=== PATIENT | female | born 1970 | race Hispanic/Latino ===

== ENCOUNTER 2017-07-21 23:10 | Emergency (ER) | payer BC ==
--- NOTE | 2017-07-21 23:59 | CT ---
CT BRAIN 07/21/17 PROVIDED CLINICAL HISTORY: Trauma. FINDINGS: Comparison is made with the study dated 04/18/16. Ventricular system appears normal in size and morphology. There is no evidence for intracranial hemor rhage or mass effect. The extracranial soft tissues and osseous structures demonstrate no acute abnor mality. IMPRESSION: No evidence for intracranial hemorrhage or mass effect. POS: [facility]
== END 2017-07-22 00:10 | disposition home or self-care (01) ==
LOC: ERS 23:10
DX: S06.0X0A Concussion without loss of consciousness, initial encounter (principal); F10.129 Alcohol abuse with intoxication, unspecified; F17.210 Nicotine dependence, cigarettes, uncomplicated; F41.9 Anxiety disorder, unspecified; Z79.899 Other long term (current) drug therapy; W19.XXXA Unspecified fall, initial encounter
CPT/HCPCS: 70450

== ENCOUNTER 2017-10-15 09:13 | Emergency (ER) | payer BC, SELFPAY | END 2017-10-15 10:16 | disposition home or self-care (01) | LOC: ERS 09:13 | DX: F41.9 Anxiety disorder, unspecified (principal); F17.210 Nicotine dependence, cigarettes, uncomplicated | CPT/HCPCS: 99283 ==

== ENCOUNTER 2018-02-19 04:18 | Emergency (ER) | payer SELFPAY ==
--- NOTE | 2018-02-19 07:40 | CT ---
CT BRAIN WITHOUT CONTRAST: Date: 02/19/18 HISTORY: Trauma. COMPARISON: CT brain dated 07/21/17. FINDINGS: No acute territorial infarct or hemorrhage. No midline shift or mass effect. Ventricular size and ext ra-axial CSF spaces are normal. Calvarium is intact. Paranasal sinuses and mastoids are clear. IMPRESSION: No acute intracranial abnormality. POS: [facility]
== END 2018-02-19 10:08 | disposition home or self-care (01) ==
LOC: ERS 04:18
DX: S09.90XA Unspecified injury of head, initial encounter (principal); S00.03XA Contusion of scalp, initial encounter; F10.129 Alcohol abuse with intoxication, unspecified; F17.210 Nicotine dependence, cigarettes, uncomplicated; Z79.899 Other long term (current) drug therapy; W19.XXXA Unspecified fall, initial encounter
CPT/HCPCS: 70450

== ENCOUNTER 2018-06-11 08:28 | Outpatient (CLI) | payer BC ==
--- NOTE | 2018-06-11 10:56 | ULT ---
ULTRASOUND PELVIC TRANSVAGINAL WITH DOPPLER: HISTORY: Lower abdominal pain. COMPARISON: None. TECHNIQUE: Real-time, oquendo scale, color Doppler, and spectral analysis of the pelvis was performed. Transabdomi nal and transvaginal approach. FINDINGS: The uterus has been removed. The left ovary is not seen. The right ovary measures 3.7 x 2.8 x 2.7 c m with adequate vascular flow. There is a 2.5 cm right ovarian cyst. IMPRESSION: Right ovary cyst; otherwise, unremarkable exam. POS: [facility]
== END 2018-06-11 08:29 | disposition home or self-care (01) ==
LOC: BICULT 08:28
PROVIDERS: ATTEND Internal Medicine Gastroenterology
DX: R10.30 Lower abdominal pain, unspecified (principal); K76.0 Fatty (change of) liver, not elsewhere classified; R93.5 Abnormal findings on diagnostic imaging of other abdominal regions, including retroperitoneum; R18.8 Other ascites; K21.9 Gastro-esophageal reflux disease without esophagitis; N83.201 Unspecified ovarian cyst, right side
CPT/HCPCS: 76856

== ENCOUNTER 2018-10-03 16:30 | Emergency (ER) | payer BC ==
--- NOTE | 2018-10-03 18:22 | RAD ---
RIGHT KNEE FOUR VIEWS: HISTORY: Patient with chronic right knee pain. FINDINGS: AP, lateral, and both oblique views of the right knee demonstrate no evidence of acute fractures, sub luxations, or bony lesions. Osteoarthritic change is seen. Soft tissue pathology, including menisca l pathology or soft tissue abnormalities, cannot be excluded. Correlate with physical exam. IMPRESSION: No evidence of acute right knee abnormality seen. POS: [facility]
== END 2018-10-03 19:06 | disposition home or self-care (01) ==
LOC: ERS 16:30
DX: M25.561 Pain in right knee (principal); M81.0 Age-related osteoporosis without current pathological fracture; F41.9 Anxiety disorder, unspecified; F32.9 Major depressive disorder, single episode, unspecified; F17.210 Nicotine dependence, cigarettes, uncomplicated

== ENCOUNTER 2018-12-01 04:32 | Emergency (ER) | payer BC | END 2018-12-01 04:54 | disposition home or self-care (01) | LOC: ERS 04:32 | DX: M25.561 Pain in right knee (principal); F17.210 Nicotine dependence, cigarettes, uncomplicated; F41.9 Anxiety disorder, unspecified; I10 Essential (primary) hypertension; M81.0 Age-related osteoporosis without current pathological fracture | CPT/HCPCS: 99281 ==

== ENCOUNTER 2019-02-18 12:57 | Emergency (ER) | payer BC ==
[2019-02-18 13:47] LABS: #Basophils 0.1 thou/uL (0.0-0.2); #Eosinphils 0.1 thou/uL (0.0-0.7); #Lymphocytes 1.9 thou/uL (1.20-3.40); #Monocytes 0.4 thou/uL (0.11-0.59); #Neutrophils 5.7 thou/uL (1.40-6.50); %Basophils 0.8 % (0.0-1.0); %Eosinophils 1.6 % (0.0-10.0); %Lymphocytes 22.9 % (21.0-51.0); %Monocytes 4.5 % (0.0-10.0); %Neutrophils 70.2 % (42.0-75.0); Hemoglobin 14.8 g/dL (12.0-16.0); Mean Corpuscular HGB CONC 33.2 g/dL (32.0-36.0); Mean Corpuscular Hemoglobin 32.9 pg (27.0-31.0); Mean Platelet Volume 6.2 fL (7.4-10.4); Platelet Count 353 thou/uL (130-400); RBC Distribution Width 12.1 % (11.5-14.5); Red Blood Cell (RBC) Count 4.49 mill/uL (4.20-5.40); White Blood Cell (WBC) Count 8.2 thou/uL (4.8-10.8)
--- NOTE | 2019-02-18 14:06 | RAD ---
PORTABLE CHEST 1 VIEW: DATE: 02/18/2019. TIME: 1:42 p.m. HISTORY: Chest pain. FINDINGS: Comparison is made to the exam of 01/29/2016. The heart size is normal. The lungs are expanded without lobar consolidation, pneumothoraces, or ple ural effusions. IMPRESSION: No evidence of acute cardiopulmonary process. POS: [facility]
[2019-02-18 14:13] LABS: ALT (SGPT) 20 U/L (8-55); AST (SGOT) 18 U/L (5-34); Albumin 4.1 g/dL (3.5-5.0); Alkaline Phosphatase 65 U/L (40-150); Anion Gap 11 mmol/L (10-20); BUN (Urea Nitrogen) 8 mg/dL (7.0-18.7); Bilirubin, Total 0.4 mg/dL (0.2-1.2); Calc. Creatinine Clearance 0 mL/min (70-130); Calcium 9.3 mg/dL (7.8-10.44); Carbon Dioxide 26 mmol/L (22-29); Chloride 102 mmol/L (98-107); Estimated GFR-MDRD Greater than 90; Globulin 2.6 g/dL (2.4-3.5); Glucose 96 mg/dL (70-105); Potassium 4.3 mmol/L (3.5-5.1); Protein, Total 6.7 g/dL (6.0-8.3); Sodium 135 mmol/L (136-145)
[2019-02-18 14:30] LABS: Bilirubin Negative (Negative); Blood, Urine Negative (Negative); Clarity Clear (Clear); Glucose, Urine (Dipstick) Normal (Negative); Leukocyte Negative Leu/uL (Negative); Nitrite Negative (Negative); Protein, Urine (Dipstick) Negative (Neg-Trace); Urobilinogen Normal mg/dL (Less than 2)
[2019-02-18 15:58] LABS: BHCG - Serum Negative (NEGATIVE); Pregs Control Background? CLEAR/WHITE (CLR/WHITE); Pregs Control Bar Appear? YES (CONTROL BAR)
[2019-02-18] MEDS ORDERED: Azithromycin 500 MG VIAL ONE (18:06)
[2019-02-18] MEDS ORDERED: cefTRIAXone\\ROCEPHIN 250 MG VIAL ONE (18:06)
[2019-02-18] MEDS ORDERED: Azithromycin 250 MG TAB ONE (18:07)
[2019-02-18] MEDS ORDERED: Lidocaine 1% PF 5 ML VIAL ONE (18:14)
--- NOTE | 2019-02-19 16:54 | EKG ---
Test Reason : BACK/NECK PAIN Blood Pressure : / mmHG Vent. Rate : 082 BPM Atrial Rate : 082 BPM P-R Int : 154 ms QRS Dur : 098 ms QT Int : 394 ms P-R-T Axes : 011 171 028 degrees QTc Int : 460 ms Normal sinus rhythm Left posterior fascicular block Abnormal ECG Confirmed by LAN ERAZO D.O. ([id number]), production editor MAHOGANY BRAUN ([id number] on 02/19/2019 4:53:33 PM Referred By: Confirmed By:LAN ERAZO D.O.
== END 2019-02-18 18:22 | disposition home or self-care (01) ==
LOC: ERS 12:57
DX: N76.0 Acute vaginitis (principal); F41.9 Anxiety disorder, unspecified; F17.210 Nicotine dependence, cigarettes, uncomplicated
CPT/HCPCS: 36415; 71045; 80053; 81003; 84484; 84703; 85025; 86850; 86900; 86901; 93005; 94760; 96372; J0456; J0696; J2001

== ENCOUNTER 2019-03-24 08:42 | Outpatient (CLI) | payer BC ==
--- NOTE | 2019-03-24 12:04 | RAD ---
LEFT KNEE 2 VIEWS: HISTORY: Left knee pain, effusion. FINDINGS/IMPRESSION: No fracture, dislocation, or bone destruction is seen. No joint effusion is seen. POS: [facility]
--- NOTE | 2019-03-24 12:07 | RAD ---
RIGHT KNEE 2 VIEWS: HISTORY: Right knee pain. FINDINGS/IMPRESSION: There are mild to moderate degenerative changes. No fracture, dislocation, or bone destruction is se en. POS: [facility]
== END 2019-03-24 08:43 | disposition home or self-care (01) ==
LOC: BICRAD 08:42
PROVIDERS: ATTEND Nurse Practitioner Family
DX: M25.561 Pain in right knee (principal); M25.40 Effusion, unspecified joint; M17.11 Unilateral primary osteoarthritis, right knee

== ENCOUNTER 2019-09-23 14:11 | Emergency (ER) | payer BC | END 2019-09-23 14:46 | disposition home or self-care (01) | LOC: ERS 14:11 | DX: I10 Essential (primary) hypertension (principal); F41.9 Anxiety disorder, unspecified; F17.210 Nicotine dependence, cigarettes, uncomplicated; Z79.899 Other long term (current) drug therapy | CPT/HCPCS: 99283 ==

== ENCOUNTER 2021-01-05 02:46 | Emergency (ER) | payer BC ==
[2021-01-05 03:32] LABS: Bilirubin Negative (Negative); Blood, Urine Negative (Negative); Clarity Clear (Clear); Glucose, Urine (Dipstick) Normal (Negative); Ketone, Urine Negative (Negative); Leukocyte Negative Leu/uL (Negative); Nitrite Negative (Negative); Protein, Urine (Dipstick) Negative (Neg-Trace); Specific Gravity, Urine 1.002 (1.002-1.036); Urobilinogen Normal mg/dL (Less than 2); pH, Urine 6.5 (5.0-9.0)
[2021-01-05 03:41] LABS: #Basophils 0.1 thou/uL (0.0-0.2); #Eosinphils 0.2 thou/uL (0.0-0.7); #Lymphocytes 3.2 thou/uL (1.20-3.40); #Monocytes 0.5 thou/uL (0.11-0.59); #Neutrophils 4.8 thou/uL (1.40-6.50); %Basophils 1.3 % (0.0-1.0); %Eosinophils 2.7 % (0.0-10.0); %Lymphocytes 36.2 % (21.0-51.0); %Neutrophils 53.9 % (42.0-75.0); Mean Corpuscular HGB CONC 35.7 g/dL (32.0-36.0); Mean Corpuscular Hemoglobin 34.6 pg (27.0-31.0); Mean Platelet Volume 6.4 fL (7.4-10.4); Platelet Count 369 thou/uL (130-400); RBC Distribution Width 11.7 % (11.5-14.5); Red Blood Cell (RBC) Count 4.05 mill/uL (4.20-5.40); White Blood Cell (WBC) Count 8.9 thou/uL (4.8-10.8)
[2021-01-05 04:00] LABS: ALT (SGPT) 19 U/L (8-55); AST (SGOT) 20 U/L (5-34); Albumin 3.9 g/dL (3.5-5.0); Alkaline Phosphatase 76 U/L (40-110); Anion Gap 14 mmol/L (10-20); BUN (Urea Nitrogen) 6 mg/dL (7.0-18.7); Bilirubin, Total 0.3 mg/dL (0.2-1.2); Calc. Creatinine Clearance 0 mL/min (70-130); Carbon Dioxide 23 mmol/L (22-29); Chloride 105 mmol/L (98-107); Globulin 2.9 g/dL (2.4-3.5); Glucose 97 mg/dL (70-105); Lipase 50 U/L (8-78); Potassium 3.3 mmol/L (3.5-5.1); Protein, Total 6.8 g/dL (6.0-8.3); Sodium 139 mmol/L (136-145)
[2021-01-05] MEDS ORDERED: Iopamidol-370 76% 500 ML 1 ML ONE (10:15)
== END 2021-01-05 04:52 | disposition home or self-care (01) ==
LOC: ERS 02:46
DX: N83.201 Unspecified ovarian cyst, right side (principal); F17.210 Nicotine dependence, cigarettes, uncomplicated; M81.0 Age-related osteoporosis without current pathological fracture; Z79.899 Other long term (current) drug therapy
CPT/HCPCS: 74177; 80053; 81003; 83690; 85025; Q9967

== ENCOUNTER 2021-01-31 06:53 | Emergency (ER) | payer BC, SELFPAY | END 2021-01-31 07:51 | disposition home or self-care (01) | LOC: ERS 06:53 | DX: K03.81 Cracked tooth (principal); K02.9 Dental caries, unspecified; I10 Essential (primary) hypertension; F17.210 Nicotine dependence, cigarettes, uncomplicated | CPT/HCPCS: 99283 ==

== ENCOUNTER 2021-02-01 07:59 | Emergency (ER) | payer SELFPAY ==
[2021-02-01] MEDS ORDERED: Lidocaine 1% PF 5 ML VIAL ONE (08:25)
[2021-02-01] MEDS ORDERED: Bupivacaine 0.5% 10 ML VIAL ONE (08:25)
== END 2021-02-01 08:54 | disposition home or self-care (01) ==
LOC: ERS 07:59
DX: K03.81 Cracked tooth (principal); K02.9 Dental caries, unspecified; I10 Essential (primary) hypertension; F17.210 Nicotine dependence, cigarettes, uncomplicated
CPT/HCPCS: 99282; J3490

== ENCOUNTER 2023-02-09 18:51 | Emergency (ER) | payer SELFPAY ==
[~2023-02-09 18:51] MED LIST: Iopamidol-370 76% 500 ML MDV (1 ML CHARGE) ONE
[2023-02-09 19:25] LABS: Bacteria/HPF None Seen HPF (None Seen); Bilirubin Negative (Negative); Blood, Urine Negative (Negative); CAUTI Indications for Culture Pelvic or flank pain; Clarity Clear (Clear); Glucose, Urine (Dipstick) Normal (Negative); Ketone, Urine Negative (Negative); Leukocyte Negative Leu/uL (Negative); Nitrite Negative (Negative); Protein, Urine (Dipstick) Negative (Neg-Trace); RBC/HPF None Seen HPF (0-3); Squamous Epithelial 0-3 HPF (0-3); Urobilinogen Normal mg/dL (Less than 2); WBC/HPF 0-3 HPF (0-3); pH, Urine 6.5 (5.0-9.0)
[2023-02-09 19:26] LABS: Urine Culture Reflex No No
[2023-02-09 19:31] LABS: #Eosinphils 0.2 thou/uL (0.0-0.7); #Monocytes 0.4 thou/uL (0.11-0.59); #Neutrophils 3.3 thou/uL (1.40-6.50); %Basophils 0.4 % (0.0-1.0); %Eosinophils 2.6 % (0.0-10.0); %Lymphocytes 44.4 % (21.0-51.0); %Monocytes 5.5 % (0.0-10.0); %Neutrophils 46.8 % (42.0-75.0); Hemoglobin 13.3 g/dL (12.0-16.0); Mean Corpuscular HGB CONC 34.8 g/dL (32.0-36.0); Mean Corpuscular Hemoglobin 32.4 pg (27.0-31.0); Mean Corpuscular Volume 92.9 fl (78.0-98.0); Mean Platelet Volume 8.6 fL (7.4-10.4); Platelet Count 337 10x3/uL (130-400); RBC Distribution Width 12.6 % (11.5-14.5); Red Blood Cell (RBC) Count 4.11 mill/uL (4.20-5.40)
[2023-02-09] MEDS ORDERED: Morphine 4 MG/ML VIAL ONE (19:37)
[2023-02-09] MEDS ORDERED: Ondansetron PF 4 MG/2 ML Vial ONE (19:37)
[2023-02-09 19:52] LABS: Albumin 4.2 g/dL (3.5-5.0); Alkaline Phosphatase 70 U/L (40-110); Anion Gap 14 mmol/L (10-20); BUN (Urea Nitrogen) 11 mg/dL (9.8-20.1); Bilirubin, Total 0.3 mg/dL (0.2-1.2); Calc. Creatinine Clearance 0 mL/min (70-130); Calcium 9.7 mg/dL (7.8-10.44); Carbon Dioxide 25 mmol/L (22-29); Chloride 102 mmol/L (98-107); Estimated GFR 90; Globulin 3.1 g/dL (2.4-3.5); Glucose 99 mg/dL (70-105); Potassium 3.7 mmol/L (3.5-5.1); Protein, Total 7.3 g/dL (6.0-8.3); Sodium 137 mmol/L (136-145)
[2023-02-09 19:53] LABS: AST (SGOT) 19 U/L (5-34)
[2023-02-09 19:54] LABS: ALT (SGPT) 23 U/L (8-55)
== END 2023-02-09 22:38 | disposition home or self-care (01) ==
LOC: ERS 18:51
DX: R10.32 Left lower quadrant pain (principal); E03.9 Hypothyroidism, unspecified; I10 Essential (primary) hypertension; F17.210 Nicotine dependence, cigarettes, uncomplicated
CPT/HCPCS: 36415; 74177; 80053; 81001; 83605; 85025; 94760; J2270; J2405; Q9967

== ENCOUNTER 2024-06-07 16:38 | Emergency (ER) | payer BC ==
[2024-06-07 17:33] LABS: #Basophils 0.04 10x3/uL (0.0-0.2); %Basophils 0.5 % (0.0-1.0); %Eosinophils 3.7 % (0.0-10.0); %Lymphocytes 37.4 % (21.0-51.0); %Monocytes 5.6 % (0.0-10.0); %Neutrophils 52.5 % (42.0-75.0); Hematocrit 40.5 % (36.0-47.0); Mean Corpuscular HGB CONC 34.6 g/dL (32.0-36.0); Mean Corpuscular Hemoglobin 32.3 pg (27.0-31.0); Mean Corpuscular Volume 93.5 fL (78.0-98.0); Mean Platelet Volume 8.5 fL (7.4-10.4); Platelet Count 339 10x3/uL (130-400); RBC Distribution Width 12.1 % (11.5-14.5); Red Blood Cell (RBC) Count 4.33 mill/uL (4.20-5.40)
[2024-06-07 17:58] LABS: ALT (SGPT) 37 U/L (8-55); AST (SGOT) 33 U/L (5-34); Albumin 3.7 g/dL (3.5-5.0); Alkaline Phosphatase 90 U/L (40-110); Anion Gap 13 mmol/L (10-20); BUN (Urea Nitrogen) 9 mg/dL (9.8-20.1); Bilirubin, Total 0.3 mg/dL (0.2-1.2); Calc. Creatinine Clearance 0 mL/min (70-130); Carbon Dioxide 23 mmol/L (22-29); Chloride 102 mmol/L (98-107); Estimated GFR 100; Globulin 3.8 g/dL (2.4-3.5); Glucose 118 mg/dL (70-105); Lipase 36 U/L (8-78); Potassium 3.9 mmol/L (3.5-5.1); Protein, Total 7.5 g/dL (6.0-8.3)
[2024-06-07 18:05] LABS: Sodium 134 mmol/L (136-145)
[2024-06-07 18:06] LABS: Bilirubin Negative (Negative); Blood, Urine Negative (Negative); CAUTI Indications for Culture Pelvic or flank pain; Clarity Clear (Clear); Glucose, Urine (Dipstick) Normal (Negative); Ketone, Urine Negative (Negative); Leukocyte Negative Leu/uL (Negative); Nitrite Negative (Negative); Protein, Urine (Dipstick) Negative (Neg-Trace); RBC/HPF 0-3 HPF (0-3); Specific Gravity, Urine 1.003 (1.002-1.036); Urobilinogen Normal mg/dL (Less than 2); WBC/HPF 0-3 HPF (0-3); pH, Urine 6.5 (5.0-9.0)
[2024-06-07 18:07] LABS: Bacteria/HPF 1+ HPF (None Seen)
[2024-06-07 18:08] LABS: Urine Culture Reflex No No
== END 2024-06-07 19:41 | disposition home or self-care (01) ==
LOC: ERS 16:38
DX: R10.32 Left lower quadrant pain (principal); I10 Essential (primary) hypertension; F17.210 Nicotine dependence, cigarettes, uncomplicated
CPT/HCPCS: 36415; 74177; 80053; 81001; 83605; 83690; 85025; Q9967